=== PATIENT | male | born 1940 | race Caucasian/White ===

== ENCOUNTER 2022-01-28 06:57 | Day surgery (SDC) | payer MEDICARE, BC ==
[2022-01-28] VITALS (12 sets, daily range): BP systolic 81–116; BP diastolic 48–84; PULSE 45–63; TEMP 97.2
[~2022-01-28] VITALS: Ht 182.9 cm; Wt 75.0 kg
[2022-01-28 07:53] LABS: HEMATOCRIT 47.2 % (42.0-52.0); HEMOGLOBIN 14.9 g/dl (13.5-18.0); MEAN CELL VOLUME 94 fl (80.0-100.0); MEAN CORPUSCULAR HEMOGLOBIN 30 pg (27-31); MEAN CORPUSCULAR HGB CONC 32 g/dl (33.0-37.0); MEAN PLATELET VOLUME 10.2 fl (7.4-10.4); PLATELET COUNT 248 K/mm3 (130-400); REDCELL DISTRIBUTION WIDTH-CV 13.7 % (11.5-14.5)
[2022-01-28] MEDS ORDERED: TOPROL XL 25MG25 MG PO (08:02)
[2022-01-28] MEDS ORDERED: TYLENOL 500MG500 MG PO (08:02)
[2022-01-28] MEDS ORDERED: ASPIRIN 81M81 MG/TA2 PO (08:03)
[2022-01-28] MEDS ORDERED: KEPPRA XR750 MG PO (08:03)
[2022-01-28] MEDS ORDERED: CRESTOR20 MG PO (08:04)
[2022-01-28] MEDS ORDERED: MULTI VITAMINS1 TAB PO (08:04)
[2022-01-28] MEDS ORDERED: TRIAMCINOLONE A15 G3 TP (08:05)
[2022-01-28 08:06] LABS: CALCIUM 9.2 mg/dL (8.4-10.2); CREATININE, serum 1.24 mg/dL (0.72-1.25); POTASSIUM 4.1 mmol/L (3.5-4.5)
[2022-01-28 08:29] LABS: INR 1.1 (0.8-3.0); PROTHROMBIN TIME 12.6 SECONDS (9.7-12.8)
[2022-01-28 08:31] LABS: PARTIAL THROMBOPLASTIN TIME 34.1 SECONDS (26.0-37.0)
--- NOTE | 2022-01-28 09:55 | NUR ---
Pt returned from procedure,report from PARAM Baeza.
--- NOTE | 2022-01-28 13:30 | NUR ---
All air removed from right radial band in 2-3 ml incriments.No bleeding at site observed.Right radial site wrapped in coban and gauze.
--- NOTE | 2022-01-28 13:45 | NUR ---
Discharge instructions given to pt.pt verbalizes understanding.Pt escorted out via wheelchair by this nurse.
== END 2022-01-28 14:15 ==
LOC: COL.CAR 06:57
PROVIDERS: Internal Medicine Cardiovascular Disease
DX: I25.10 Atherosclerotic heart disease of native coronary artery without angina pectoris (principal); I42.9 Cardiomyopathy, unspecified; I49.3 Ventricular premature depolarization; E78.00 Pure hypercholesterolemia, unspecified; R94.31 Abnormal electrocardiogram [ECG] [EKG]; I47.29 Other ventricular tachycardia; F17.210 Nicotine dependence, cigarettes, uncomplicated
CPT/HCPCS: J1644; J2250; J3010; Q9967